=== PATIENT | female | born 1990 | race Caucasian/White ===

== ENCOUNTER 2025-02-26 17:45 | Emergency (ER) | payer MEDICAID ==
[~2025-02-26] VITALS: Ht 167.6 cm; Wt 63.5 kg
[2025-02-26 17:48] VITALS: TEMP 98.1
[2025-02-26 17:55] VITALS: BP 148/94; O2SAT 98
[2025-02-26] MEDS ORDERED: ONDANSETRON 4 MG TAB.RAPDIS ONE (17:57)
[2025-02-26] MEDS: IV NS 0.9% 1,000 ML BAG IV ONE (18:07)
[2025-02-26] MEDS: ONDANSETRON 4 MG TAB.RAPDIS PO ONE (18:07)
[2025-02-26 18:12] LABS: PLATELET COUNT (AUTO) 493 K/uL (150-450); RED BLOOD CELL COUNT(AUTO) 3.92 MIL/uL (4.0-5.2); RED CELL DISTRIBUTION WIDTH 17.3 % (11.5-15.0); WHITE BLOOD COUNT (AUTO) 11.0 K/uL (4.3-11.0)
[2025-02-26] MEDS ORDERED: FENTANYL PF 100MCG/2ML AMPUL IV ONE (18:30)
[2025-02-26 18:37] LABS: APPEARANCE,URINE CLEAR (CLEAR); BLOOD, URINE TRACE-INTA Ery/uL (NEGATIVE); LEUKOCYTE ESTERASE ,URINE NEGATIVE (NEGATIVE); NITRITE, URINE NEGATIVE (NEGATIVE); UGLUCOSE NEGATIVE (NEGATIVE)
[2025-02-26 18:44] LABS: CALCIUM, SERUM 8.7 mg/dL (8.5-10.1); CREATININE 0.9 mg/dL (0.6-1.3); SODIUM SERUM 136 mmol/L (136-145); UREA NITROGEN, BLOOD 17 mg/dL (7-18)
[2025-02-26 18:45] LABS: ADD URINE CULTURE NO; YEAST,URINE Few /HPF (None Seen)
[2025-02-26 18:55] LABS: ALCOHOL, BLOOD < 3 mg/dL (0-10); ASPARTATE AMINOTRANSFERASE 25 U/L (15-37); TOTAL PROTEIN, SERUM 6.8 g/dL (6.4-8.2)
[2025-02-26 19:56] LABS: AMPHETAMINE, URINE POSITIVE (NEGATIVE); BARBITURATE, URINE NEGATIVE (NEGATIVE); BENZODIAZEPINE, URINE NEGATIVE (NEGATIVE); CANNABINOID, URINE NEGATIVE (NEGATIVE); COCCAINE, URINE NEGATIVE (NEGATIVE); OPIATE, URINE NEGATIVE (NEGATIVE)
== END 2025-02-26 18:44 | disposition left against medical advice (07) ==
LOC: ER 17:47
DX: T40.601A Poisoning by unspecified narcotics, accidental (unintentional), initial encounter (principal); R11.0 Nausea; F19.10 Other psychoactive substance abuse, uncomplicated; Z88.0 Allergy status to penicillin; Z59.00 Homelessness unspecified; Y92.89 Other specified places as the place of occurrence of the external cause
CPT/HCPCS: 99283; 96360; 85025; 80048; 80076; 81001; 36415; 80143; 80320; 80307; J7030; Q0162; G0480